=== PATIENT | female | born 1965 | race African-American/Black ===

== ENCOUNTER 2021-11-27 05:58 | Emergency (ER) | payer OTHER, SELFPAY ==
[2021-11-27 05:58] VITALS: BP 145/96; PULSE 77; RESP 17; TEMP 37.1; O2SAT 96; BMI 43.0
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
[2021-11-27 06:43] VITALS: O2SAT 97
[2021-11-27] MEDS: Morphine 4 MG/ML Syringe 8 MG IM (06:45)
[2021-11-27] MEDS: Ondansetron ODT 4 MG Tablet PO (06:46)
--- NOTE | 2021-11-27 07:05 | RAD_ITS ---
STUDY: X-RAY - LEFT KNEE REASON FOR EXAM: Female, 56 years old patient with left-sided knee pain. TECHNIQUE: 4 view(s) of the knee. COMPARISON: Prior comparison studies are not available for review at this time. FINDINGS: Normal visualized distal femur. Normal visualized proximal tibia and fibula. Normal proximal tibiofibular articulation. There is no demonstrated fracture. There is mild degenerative arthrosis of the medial femorotibial compartment. There is mild degenerative arthrosis of the lateral femorotibial compartment. There is moderate degenerative arthrosis of the patellofemoral articulation. There is no demonstrated joint effusion. The soft tissue structures are unremarkable. RAD/Knee 4 or More Views IMPRESSION: Degenerative arthropathy. Electronically Signed: Gloria Coombs MD at 7:53 EDT ,
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
[2021-11-27 08:12] VITALS: BP 144/98; PULSE 99; RESP 16; O2SAT 98
== END 2021-11-27 08:22 | disposition home or self-care (01) ==
PROVIDERS: Emergency Provider Emergency Medicine; Visit Provider Emergency Medicine
DX: S16.1XXA Strain of muscle, fascia and tendon at neck level, initial encounter (principal); S80.02XA Contusion of left knee, initial encounter; V43.52XA Car driver injured in collision with other type car in traffic accident, initial encounter
CPT/HCPCS: 70450; 72125; 73564; 96372; 99284